=== PATIENT | female | born 1990 ===

== ENCOUNTER 2018-11-23 03:49 | Emergency (ER) | payer OTHER ==
[~2018-11-23] VITALS: Ht 162.6 cm; Wt 54.4 kg
[2018-11-23] MEDS ORDERED: ULTRAM50 MG PO (04:01)
[2018-11-23] MEDS ORDERED: TRAMADOL HCL50 MG PO (04:31)
[2018-11-23] MEDS ORDERED: CRUTCH1 EACH (04:32)
== END 2018-11-23 04:50 | disposition home or self-care (01) ==
LOC: ED 03:49
PROC: 2W3MX1Z Immobilization of Left Lower Extremity using Splint (ICD-10-PCS; principal; 2018-11-23)
DX: S93.402A Sprain of unspecified ligament of left ankle, initial encounter (principal); Z88.0 Allergy status to penicillin; X50.1XXA Overexertion from prolonged static or awkward postures, initial encounter
CPT/HCPCS: 29515; 73610; 99283-25